=== PATIENT | female | born 1960 | race Caucasian/White ===

== ENCOUNTER 2016-12-04 13:57 | Emergency (ER) | payer BC, OTHER ==
[2016-12-04 15:55] LABS: BASO # 0.1 K/mm3 (0.0-0.2); BASO % 0.6 % (0.0-1.0); EOS # 0.2 K/mm3 (0.0-0.50); LARGE UNSTAINED CELL # 0.2 K/mm3 (0.0-0.4); LARGE UNSTAINED CELL % 2.1 % (0.0-4.0); LYMPH # 2.7 K/mm3 (1.5-4.5); LYMPH % 29.9 % (24.0-44.0); MEAN CORPUSCULAR HEMOGLOBIN 29.8 pg (27.0-33.0); MEAN CORPUSCULAR HGB CONC 33.1 g/dl (32.0-36.5); MEAN CORPUSCULAR VOLUME 90.1 fl (80.0-96.0); MONO # 0.4 K/mm3 (0.0-0.8); MONO % 4.7 % (0.0-5.0); NEUTROPHILS # 5.4 K/mm3 (1.8-7.7); NEUTROPHILS % 60.6 % (36.0-66.0); PLATELET COUNT, AUTOMATED 220 k/mm3 (150-450); RED CELL DISTRIBUTION WIDTH 13.6 % (11.5-14.5); WHITE BLOOD COUNT 8.9 K/mm3 (4.0-10.0)
--- NOTE | 2016-12-04 16:11 | REP ---
Right ankle series: Four views. History: Deformity and swelling. Findings: Ankle mortise is intact. No fracture is seen. There is plantar calcaneal spurring. Impression: No fracture noted. Mild spurring. Signed by Neptali Naik MD 12/04/2016 04:03 P
[2016-12-04 16:18] LABS: ERYTHROCYTE SEDIMENTATION RATE 18 mm/hr (0-30)
--- NOTE | 2016-12-04 17:50 | REPUSA ---
CLINICAL HISTORY: Edema. COMMENTS: Real time sonography with duplex doppler of the right lower extremity was performed with attention to the major deep venous structures. Evaluation reveals the right common femoral, superficial femoral and popliteal veins to be completely compressible without intraluminal thrombus. There is normal spontaneous phasic flow and augmentation . The greater saphenous/common femoral vein junction is patent. IMPRESSION: No evidence of DVT in right lower extremity. Thank you for your kind referral of this patient.
--- NOTE | 2016-12-04 18:24 | EDDOCDS ---
Nurse's Notes [facility] Name: Kristi Hansen Age: 56 yrs Sex: Female : 1960 Arrival Date: 12/04/2016 Time: 13:57 Bed 13 Private MD: NO PRIMARY PHYSICIAN, . Diagnosis: Rheumatoid bursitis, ankle and foot;Paresthesia of skin Presentation: 12/04 14:06 Presenting complaint: Patient states: right foot has been numb since Monday night. kr3 Reports today noticed numbness to right ankle. No known injury. Adult Sepsis Screening: The patient does not have new or worsening altered mentation. Patient's respiratory rate is less than 22. Systolic blood pressure is greater than 100. Patient has a qSOFA score of 0- Negative Sepsis Screen. Suicide/Homicide risk assessment- the patient denies having any suicidal and/or homicidal ideations and does not present with any other emotional, behavioral or mental health complaints. Status: Patient is not a service specialist or dependent. Transition of care: patient was not received from another setting of care. 14:06 Acuity: KAMILLE Level 4 kr3 14:06 Method Of Arrival: Walkin/Carried/Asstd kr3 Triage Assessment: 14:14 General: Appears in no apparent distress, comfortable, Behavior is appropriate for age, kr3 cooperative. Pain: Location: right foot Pain currently is 2 out of 10 on a pain scale. Quality of pain is described as aching. Pt Declines HIV testing. Respiratory: Respiratory effort is even, unlabored. Derm: Skin is normal. Musculoskeletal: Reports weight bears with no difficulty. Historical: - Allergies: no known allergies; - Home Meds: 1. levothyroxine 112 mcg Oral cap 1 cap once daily 2. Cimzia subcutaneous subcutaneous every other week 3. prednisone 5 mg Oral tab once daily 4. Arthritis Pain Reliever 650 mg oral TbER 2 tabs 5. cyclobenzaprine 10 mg Oral tab as needed 6. metformin 500 mg Oral TG24 2 tabs 2 times per day 7. Vitamin D Oral 50,000 unit bi weekly 8. fenofibrate 54 mg oral tab 1 tab once daily 9. omeprazole 20 mg Oral cpDR 1 cap once daily 10. citalopram 40 mg Oral tab 1 tab once daily 11. mirtazapine 15 mg Oral TbDL 1 tab once daily 12. acyclovir 800 mg Oral tab as needed 13. Ventolin Rotahaler/Rotacaps Inhl as needed 14. clobetasol 0.05 % Topical crea as needed 15. Systane 0.4-0.3 % ophthalmic drop three times a day 16. Restasis 0.05 % ophthalmic dpet 1 drop 2 times per day - PMHx: Psoriasis; Asthma; Hiatal Hernia; Depression; Diabetes - NIDDM: controlled; Rheumatoid Arthritis; Hypothyroidism; - PSHx: Cholecystectomy; Lumpectomy- Left; Hysterectomy; - The history from nurses notes was reviewed: and I agree with what is documented. - Social history: Smoking status: Patient states was never smoker of tobacco. No barriers to communication noted, The patient speaks fluent Kazakh, Speaks appropriately for age. - Family history: Not pertinent. - : The pt / caregiver states he / she is not on anticoagulants. Home medication list is obtained from the patient. - Hospitalizations: : No recent hospitalization is reported. - Exposure Risk Screening:: None identified. - Immunization history:: All immunizations up-to-date. - Social history:: the patient is a non-smoker, the patient does not drink alcohol. Screenin:21 Screening information is obtained from the patient. Fall risk: No risks identified. jc4 Assistance ADL's: requires no assistance with activities of daily living. Abuse/DV Screen: The patient / caregiver reports he/she is: not in a situation that causes fear, pain or injury. Nutritional screening: No deficits noted. Advance Directives: Currently, there is no health care proxy. There is no active DNR order. There is no living will. There is an active Power of [place], Mark Macias, father. home support is adequate. Assessment: 15:12 General: Dr. Chen in to examine patient. jc4 15:23 General: Appears in no apparent distress. Pain: Denies pain. Neurological: Level of jc4 Consciousness is awake, alert, Oriented to person, place, time. Respiratory: Airway is patent Respiratory effort is even, unlabored, Respiratory pattern is regular, symmetrical. Derm: Skin is pink, warm & dry. Musculoskeletal: pulses palpable in right posterior tibial and dorsalis pedis Reports numbness in lateral side of right foot. Injury Description: No known injury. 15:46 General: Pt returned from radiology. Resting comfortably in bed. Call torres placed ld5 within reach. Will continue to monitor. 16:41 General: Pt resting on stretcher. Working on crossword puzzle. No distress noted at jc4 this time. Color pink, skin warm and dry. Respirations easy and full. Saline lock in place. Call torres in reach. 17:48 General: Pt resting on stretcher. No distress noted at this time. Denies any pain. jc4 States that numbness persists in right lateral foot. Saline lock in place. Call torres in reach. Denies any complaint at this time. 18:22 General: Appears in no apparent distress, Behavior is cooperative, pleasant. Pain: ld5 Denies pain. Neurological: Level of Consciousness is awake, alert. Respiratory: Airway is patent Respiratory effort is even, unlabored. Vital Signs: 14:00 BP 148 / 72; Pulse 83; Resp 18 S; Temp 96.8(O); Pulse Ox 98% on R/A; Weight 90.72 kg gr2 (R); Height 4 ft. 11 in. (149.86 cm) (R); Pain 0/10; 17:48 BP 139 / 72; Pulse 80; Resp 20; Temp 97.6(O); Pulse Ox 96% on R/A; Pain 0/10; jc4 14:00 Body Mass Index 40.39 (90.72 kg, 149.86 cm) [facility] Vitals: 14:00 Log In Time: December 04, 2016 at 14:00. gr2 ED Course: 13:59 Patient visited by Paulino Sapp. gr2 13:59 Patient moved to Waiting gr2 14:00 NO PRIMARY PHYSICIAN, . is Private Physician. gr2 14:03 Patient visited by Paulino Sapp. gr2 14:03 Patient moved to Pre RCE gr2 14:07 Triage Initiated kr3 14:54 Patient moved to 13 ml6 15:06 Emmett Chen MD is Attending Physician. pc 15:20 Patient visited by Emmett Chen MD. pc 15:20 The patient / caregiver is instructed regarding the plan of care and ED course. jc4 15:46 Patient visited by Geovanna Urbano RN. ld5 15:46 ESR Sent. ld5 15:46 C Reactive Protein Sent. ld5 15:46 CBC with Diff Sent. ld5 15:46 Inserted saline lock: 20 gauge in right antecubital area and blood collected. The ld5 patient tolerated the procedure well. Labs drawn. (by ED staff). Sent per order to lab. 15:55 [facility] [place] Agreement was scanned into [employer] and attached to record. ks16 16:21 Ankle, Complete Returned. EDMS 16:35 Patient visited by Emmett Chen MD. pc 16:42 Patient visited by Hedy Sheffield, LARRY. jc4 16:49 Patient moved to Ultrasound br3 17:05 Patient moved to 13 br3 17:48 Patient visited by Hedy Sheffield RN. jc4 18:04 DVT US Lower Returned. EDMS 18:22 Discontinued lock intact, bleeding controlled, pressure dressing applied, No ld5 redness/swelling at site. No procedures done that require assistance. Air stirrup applied to right ankle Patient with positive distal sensation and brisk distal capillary refill after application. 18:24 Patient visited by Geovanna Urbano RN. ld5 Order Results: Lab Order: CBC with Diff; SPEC'M 12/04/16 15:44 Test: WHITE BLOOD COUNT; Value: 8.9; Range: 4.0-10.0; Units: K/mm3; Status: F Test: RED BLOOD COUNT; Value: 4.59; Range: 4.00-5.40; Units: M/mm3; Status: F Test: HEMOGLOBIN; Value: 13.7; Range: 12.0-16.0; Units: g/dl; Status: F Test: HEMATOCRIT; Value: 41.3; Range: 36.0-47.0; Units: %; Status: F Test: MEAN CORPUSCULAR VOLUME; Value: 90.1; Range: 80.0-96.0; Units: fl; Status: F Test: MEAN CORPUSCULAR HEMOGLOBIN; Value: 29.8; Range: 27.0-33.0; Units: pg; Status: F Test: MEAN CORPUSCULAR HGB CONC; Value: 33.1; Range: 32.0-36.5; Units: g/dl; Status: F Test: RED CELL DISTRIBUTION WIDTH; Value: 13.6; Range: 11.5-14.5; Units: %; Status: F Test: PLATELET COUNT, AUTOMATED; Value: 220; Range: 150-450; Units: k/mm3; Status: F Test: NEUTROPHILS %; Value: 60.6; Range: 36.0-66.0; Units: %; Status: F Test: LYMPH %; Value: 29.9; Range: 24.0-44.0; Units: %; Status: F Test: MONO %; Value: 4.7; Range: 0.0-5.0; Units: %; Status: F Test: EOS %; Value: 2.0; Range: 0.0-3.0; Units: %; Status: F Test: BASO %; Value: 0.6; Range: 0.0-1.0; Units: %; Status: F Test: LARGE UNSTAINED CELL %; Value: 2.1; Range: 0.0-4.0; Units: %; Status: F Test: NEUTROPHILS #; Value: 5.4; Range: 1.8-7.7; Units: K/mm3; Status: F Test: LYMPH #; Value: 2.7; Range: 1.5-4.5; Units: K/mm3; Status: F Test: MONO #; Value: 0.4; Range: 0.0-0.8; Units: K/mm3; Status: F Test: EOS #; Value: 0.2; Range: 0.0-0.50; Units: K/mm3; Status: F Test: BASO #; Value: 0.1; Range: 0.0-0.2; Units: K/mm3; Status: F Test: LARGE UNSTAINED CELL #; Value: 0.2; Range: 0.0-0.4; Units: K/mm3; Status: F Lab Order: C Reactive Protein; SPEC'M 12/04/16 15:44 Test: C REACTIVE PROTEIN QUANTITATIV; Value: 1.32; Range: 0.00-0.30; Abnormal: Above high normal; Units: MG/DL; Status: F Lab Order: ESR; SPEC'M 12/04/16 15:44 Test: ERYTHROCYTE SEDIMENTATION RATE; Value: 18; Range: 0-30; Units: mm/hr; Status: F Radiology Order: Ankle, Complete Test: Ankle, Complete REASON FOR EXAMINATION: Deformity/Swelling; Right ankle series: Four views.; ; History: Deformity and swelling.; ; Findings: Ankle mortise is intact. No fracture is seen. There is plantar; calcaneal spurring.; ; Impression:; ; No fracture noted. Mild spurring.; ; ; Signed by; Neptali Naik MD 12/04/2016 04:03 P; Radiology Order: DVT US Lower Test: DVT US Lower REASON FOR EXAMINATION: Deformity/Swelling; ; CLINICAL HISTORY: Edema.; COMMENTS:; Real time sonography with duplex doppler of the right lower extremity was performed with attention to; the major deep venous structures.; Evaluation reveals the right common femoral, superficial femoral and popliteal veins to be completely; compressible without intraluminal thrombus. There is normal spontaneous phasic flow and augmentation; . The greater saphenous/common femoral vein junction is patent.; IMPRESSION:; No evidence of DVT in right lower extremity.; Thank you for your kind referral of this patient.; ; Outcome: 18:07 Discharge ordered by Provider. pc 18:22 Discharge Assessment: Patient awake, alert and oriented x 3. No cognitive and/or ld5 functional deficits noted. Patient verbalized understanding of disposition instructions. patient administered narcotics - no. The following High Risk Discharge criteria are identified: None. Discharged to home ambulatory. Condition: stable. Discharge instructions given to patient, Instructed on discharge instructions, follow up and referral plans. medication usage, Demonstrated understanding of instructions, medications, Pt was receptive of discharge instructions/ teaching. No special radiology studies were completed. Property :Personal belongings accompany Pt. 18:24 Patient left the ED. ld5 Signatures: Dispatcher [employer] EDMS Emmett Chen MD MD pc Addie Mathews,LARRY RN kr3 Pedro Call RN RN ml6 Johanny Sapp br3 Geovanna Urbano RN RN ld5 Hedy Sheffield RN RN jc4 Paulino Sapp gr2 Miriam Fields, Reg Reg ks16 MTDD
--- NOTE | 2016-12-04 18:24 | EDDOCDS ---
Physician Documentation [facility] Name: Kristi Hansen Age: 56 yrs Sex: Female : 1960 Arrival Date: 12/04/2016 Time: 13:57 Bed 13 Private MD: NO PRIMARY PHYSICIAN, . Disposition: 12/04 17:49 Critical Care: Critical care not applicable. pc Disposition: 12/04/16 18:07 Discharged to Home/Self Care. Impression: Rheumatoid bursitis, ankle and foot, Paresthesia of skin. - Condition is Stable. - Discharge Instructions: Rheumatoid Arthritis. - Medication Reconciliation, Local Pharmacy Hours form. - Follow up: Private Physician; When: in [place]: call to be seen earlier than scheduled appointment ; Reason: Recheck today's complaints, Continuance of care. - Problem is new. - Symptoms have improved. - Notes: Increase your prednisone to 10mg daily for 3 days and then taper down to 7.5mg and then 5mg every 3 days HPI: 15:27 This 56 yrs old Female presents to ER via Walkin/Carried/Asstd with pc complaints of ANKLE/FOOT NUMBNESS. 15:27 The history is obtained from the patient. She drove 3-4 hours on Monday and noticed pc that her right foot, over the lateral aspect near the base of the 5th M/T was numb to touch. It was not painful or swollen, and the skin was not red. She kept it elevated over night and then noticed the next morning that the outer aspect of the right ankle was also numb to touch. She again did not have any pain or swelling or skin changes. She is keisha to walk without difficulty. She did not have any fevers or chills. She has RA, on Cimzia that was held last week because of a head cold. She does not feel this is a RA flare, as she is usually in sever pain when that occurs. She denies any calf swelling or pain, denies low back pain. 15:37 The patient has not experienced similar symptoms in the past. The patient has been pc recently seen by their primary care provider, for a routine, regularly scheduled appointment. Historical: - Allergies: no known allergies; - Home Meds: 1. levothyroxine 112 mcg Oral cap 1 cap once daily 2. Cimzia subcutaneous subcutaneous every other week 3. prednisone 5 mg Oral tab once daily 4. Arthritis Pain Reliever 650 mg oral TbER 2 tabs 5. cyclobenzaprine 10 mg Oral tab as needed 6. metformin 500 mg Oral TG24 2 tabs 2 times per day 7. Vitamin D Oral 50,000 unit bi weekly 8. fenofibrate 54 mg oral tab 1 tab once daily 9. omeprazole 20 mg Oral cpDR 1 cap once daily 10. citalopram 40 mg Oral tab 1 tab once daily 11. mirtazapine 15 mg Oral TbDL 1 tab once daily 12. acyclovir 800 mg Oral tab as needed 13. Ventolin Rotahaler/Rotacaps Inhl as needed 14. clobetasol 0.05 % Topical crea as needed 15. Systane 0.4-0.3 % ophthalmic drop three times a day 16. Restasis 0.05 % ophthalmic dpet 1 drop 2 times per day - PMHx: Psoriasis; Asthma; Hiatal Hernia; Depression; Diabetes - NIDDM: controlled; Rheumatoid Arthritis; Hypothyroidism; - PSHx: Cholecystectomy; Lumpectomy- Left; Hysterectomy; - The history from nurses notes was reviewed: and I agree with what is documented. - Social history: Smoking status: Patient states was never smoker of tobacco. No barriers to communication noted, The patient speaks fluent Hebrew, Speaks appropriately for age. - Family history: Not pertinent. - : The pt / caregiver states he / she is not on anticoagulants. Home medication list is obtained from the patient. - Hospitalizations: : No recent hospitalization is reported. - Exposure Risk Screening:: None identified. - Immunization history:: All immunizations up-to-date. - Social history:: the patient is a non-smoker, the patient does not drink alcohol. ROS: 15:37 CVS/Resp: runny nose and dry cough for 5 days. pc 15:37 All systems are negative except as listed. Exam: 15:37 General Appearance: no acute distress, alert. pc 15:37 EENT: normal eye inspection, ears, nose and throat normal, pharynx normal, mucous membranes moist 15:37 Neck: The exam reveals no acute abnormalities. ROM is normal and painless. No nuchal rigidity is noted.. 15:37 Respiratory: no respiratory distress, normal breath sounds. 15:37 CVS: regular pulse rate, regular rhythm, normal S1 and S2, no murmurs, strong peripheral pulses, normal capillary refill. 15:37 Abdomen: soft, non-tender, no organomegaly, normal bowel sounds. 15:37 Back: normal inspection. 15:37 Skin: skin color is normal, warm, dry. 15:37 Extremities: grossly normal except: noted in the right ankle and lateral aspect of right foot: slight swelling noted, warm to touch without skin color changes. ROM of ankle normal and painless. No bony point tenderness. Decreased light touch but normal pin prick sensation. 15:37 Extremities: the calves have equal circumference, supple. pc Vital Signs: 14:00 BP 148 / 72; Pulse 83; Resp 18 S; Temp 96.8(O); Pulse Ox 98% on R/A; Weight 90.72 kg / gr2 200 lbs (R); Height 4 ft. 11 in. (149.86 cm) (R); Pain 0/10; 17:48 BP 139 / 72; Pulse 80; Resp 20; Temp 97.6(O); Pulse Ox 96% on R/A; Pain 0/10; jc4 14:00 Body Mass Index 40.39 (90.72 kg, 149.86 cm) gr2 MDM: 15:20 IV Saline Lock ordered. pc 15:21 CBC with Diff Ordered. EDMS 15:21 C Reactive Protein Ordered. EDMS 15:21 ESR Ordered. EDMS 15:22 Ankle, Complete Ordered. EDMS 15:40 Differential Diagnosis: arthropathy right ankle with history of RA, with localized pc sensory changesd likely due to swelling r/o DVT/radiculopathy. Plan: labs, imaging. 15:51 Financial registration complete. ks16 15:55 [facility] Payment Agreement was scanned into [employer] and attached to record. ks16 16:35 C Reactive Protein Reviewed. pc 16:35 CBC with Diff Reviewed. pc 16:35 ESR Reviewed. pc 16:35 Ankle, Complete Reviewed. pc 16:37 DVT US Lower Ordered. EDMS 17:40 Data reviewed: old medical records, vital signs, nurses notes, lab test results, all pc radiology studies and available results. Test interpretation: LAB - all labs as ordered have been reviewed, interpreted and considered in the overall management of the clinical presentation; Ultrasound - interpreted by Radiologist, Extremity Lower Right Normal. The patient has been re-examined and re-evaluated. There is no appreciated change of the patient's symptoms at this time. ED course: Her symptoms are consistent with localized paraesthesia due to swelling. The ankle is warm and slightly swollen and her CRP is slightly elevated. She will be treated symptomatically and encouraged to contact her Pre Press Manager tomorrow re; Sabrina. 17:49 Disposition: The historical points, examination findings, and any diagnostic results pc supporting the provided diagnosis, were discussed with the patient or legal guardian. The need for outpatient follow up with the provider listed on their discharge instructions was discussed. They were encouraged to return to [facility], or the nearest ED, if symptoms worsen/persist, or for any other questions/concerns. 18:05 Apply Air Cast to Patient. ordered. pc Signatures: Dispatcher [employer] EDMS Emmett Chen MD MD pc Robie, KathleenRN RN kr3 Geovanna UrbanoRN RN ld5 Hedy Sheffield RN RN jc4 Miriam Fields, Reg Reg ks16 The chart was reviewed and I authenticate all verbal orders and agree with the evaluation and treatment provided.Corrections: (The following items were deleted from the chart) 15:32 15:27 She drove 3-4 hours on Monday and noticed that her right foot, over the lateral pc aspect near the base of the 5th M/T was numb to touch. It was not painful or swollen, and the skin was not red. She kept it elevated over night and then noticed the next morning that the outer aspect of the right ankle was also numb to touch. She again did not have any pain or swelling or skin changes. She is keisha to walk without difficulty. She did not have any fevers or chills pc 15:38 15:27 [address] drove 3-4 hours on Monday and noticed that her right foot, over the lateral pc aspect near the base of the 5th M/T was numb to touch. It was not painful or swollen, and the skin was not red. She kept it elevated over night and then noticed the next morning that the outer aspect of the right ankle was also numb to touch. She again did not have any pain or swelling or skin changes. She is keisha to walk without difficulty. She did not have any fevers or chills. She has RA, on Cimzia that was held last week because of a head cold. pc Attachments: 15:55 [facility] Payment Agreement [email or web address] MTDD
--- NOTE | 2016-12-06 19:25 | EDDOCDS ---
Physician Documentation [facility] Name: Kristi Hansen Age: 56 yrs Sex: Female : 1960 Arrival Date: 12/04/2016 Time: 13:57 Bed 13 Private MD: NO PRIMARY PHYSICIAN, . Disposition: 12/04 17:49 Critical Care: Critical care not applicable. pc Disposition: 12/04/16 18:07 Discharged to Home/Self Care. Impression: Rheumatoid bursitis, ankle and foot, Paresthesia of skin. - Condition is Stable. - Discharge Instructions: Rheumatoid Arthritis. - Medication Reconciliation, Local Pharmacy Hours form. - Follow up: Private Physician; When: in [place]: call to be seen earlier than scheduled appointment ; Reason: Recheck today's complaints, Continuance of care. - Problem is new. - Symptoms have improved. - Notes: Increase your prednisone to 10mg daily for 3 days and then taper down to 7.5mg and then 5mg every 3 days HPI: 15:27 This 56 yrs old Female presents to ER via Walkin/Carried/Asstd with pc complaints of ANKLE/FOOT NUMBNESS. 15:27 The history is obtained from the patient. She drove 3-4 hours on Monday and noticed pc that her right foot, over the lateral aspect near the base of the 5th M/T was numb to touch. It was not painful or swollen, and the skin was not red. She kept it elevated over night and then noticed the next morning that the outer aspect of the right ankle was also numb to touch. She again did not have any pain or swelling or skin changes. She is keisha to walk without difficulty. She did not have any fevers or chills. She has RA, on Cimzia that was held last week because of a head cold. She does not feel this is a RA flare, as she is usually in sever pain when that occurs. She denies any calf swelling or pain, denies low back pain. 15:37 The patient has not experienced similar symptoms in the past. The patient has been pc recently seen by their primary care provider, for a routine, regularly scheduled appointment. Historical: - Allergies: no known allergies; - Home Meds: 1. levothyroxine 112 mcg Oral cap 1 cap once daily 2. Cimzia subcutaneous subcutaneous every other week 3. prednisone 5 mg Oral tab once daily 4. Arthritis Pain Reliever 650 mg oral TbER 2 tabs 5. cyclobenzaprine 10 mg Oral tab as needed 6. metformin 500 mg Oral TG24 2 tabs 2 times per day 7. Vitamin D Oral 50,000 unit bi weekly 8. fenofibrate 54 mg oral tab 1 tab once daily 9. omeprazole 20 mg Oral cpDR 1 cap once daily 10. citalopram 40 mg Oral tab 1 tab once daily 11. mirtazapine 15 mg Oral TbDL 1 tab once daily 12. acyclovir 800 mg Oral tab as needed 13. Ventolin Rotahaler/Rotacaps Inhl as needed 14. clobetasol 0.05 % Topical crea as needed 15. Systane 0.4-0.3 % ophthalmic drop three times a day 16. Restasis 0.05 % ophthalmic dpet 1 drop 2 times per day - PMHx: Psoriasis; Asthma; Hiatal Hernia; Depression; Diabetes - NIDDM: controlled; Rheumatoid Arthritis; Hypothyroidism; - PSHx: Cholecystectomy; Lumpectomy- Left; Hysterectomy; - The history from nurses notes was reviewed: and I agree with what is documented. - Social history: Smoking status: Patient states was never smoker of tobacco. No barriers to communication noted, The patient speaks fluent Azeri, Speaks appropriately for age. - Family history: Not pertinent. - : The pt / caregiver states he / she is not on anticoagulants. Home medication list is obtained from the patient. - Hospitalizations: : No recent hospitalization is reported. - Exposure Risk Screening:: None identified. - Immunization history:: All immunizations up-to-date. - Social history:: the patient is a non-smoker, the patient does not drink alcohol. ROS: 15:37 CVS/Resp: runny nose and dry cough for 5 days. pc 15:37 All systems are negative except as listed. Exam: 15:37 General Appearance: no acute distress, alert. pc 15:37 EENT: normal eye inspection, ears, nose and throat normal, pharynx normal, mucous membranes moist 15:37 Neck: The exam reveals no acute abnormalities. ROM is normal and painless. No nuchal rigidity is noted.. 15:37 Respiratory: no respiratory distress, normal breath sounds. 15:37 CVS: regular pulse rate, regular rhythm, normal S1 and S2, no murmurs, strong peripheral pulses, normal capillary refill. 15:37 Abdomen: soft, non-tender, no organomegaly, normal bowel sounds. 15:37 Back: normal inspection. 15:37 Skin: skin color is normal, warm, dry. 15:37 Extremities: grossly normal except: noted in the right ankle and lateral aspect of right foot: slight swelling noted, warm to touch without skin color changes. ROM of ankle normal and painless. No bony point tenderness. Decreased light touch but normal pin prick sensation. 15:37 Extremities: the calves have equal circumference, supple. pc Vital Signs: 14:00 BP 148 / 72; Pulse 83; Resp 18 S; Temp 96.8(O); Pulse Ox 98% on R/A; Weight 90.72 kg / gr2 200 lbs (R); Height 4 ft. 11 in. (149.86 cm) (R); Pain 0/10; 17:48 BP 139 / 72; Pulse 80; Resp 20; Temp 97.6(O); Pulse Ox 96% on R/A; Pain 0/10; jc4 14:00 Body Mass Index 40.39 (90.72 kg, 149.86 cm) gr2 MDM: 15:20 IV Saline Lock ordered. pc 15:21 CBC with Diff Ordered. EDMS 15:21 C Reactive Protein Ordered. EDMS 15:21 ESR Ordered. EDMS 15:22 Ankle, Complete Ordered. EDMS 15:40 Differential Diagnosis: arthropathy right ankle with history of RA, with localized pc sensory changesd likely due to swelling r/o DVT/radiculopathy. Plan: labs, imaging. 15:51 Financial registration complete. ks16 15:55 [facility] Payment Agreement was scanned into [employer] and attached to record. ks16 16:35 C Reactive Protein Reviewed. pc 16:35 CBC with Diff Reviewed. pc 16:35 ESR Reviewed. pc 16:35 Ankle, Complete Reviewed. pc 16:37 DVT US Lower Ordered. EDMS 17:40 Data reviewed: old medical records, vital signs, nurses notes, lab test results, all pc radiology studies and available results. Test interpretation: LAB - all labs as ordered have been reviewed, interpreted and considered in the overall management of the clinical presentation; Ultrasound - interpreted by Radiologist, Extremity Lower Right Normal. The patient has been re-examined and re-evaluated. There is no appreciated change of the patient's symptoms at this time. ED course: Her symptoms are consistent with localized paraesthesia due to swelling. The ankle is warm and slightly swollen and her CRP is slightly elevated. She will be treated symptomatically and encouraged to contact her Nuclear Physics Professor tomorrow reDerik Bennett. 17:49 Disposition: The historical points, examination findings, and any diagnostic results pc supporting the provided diagnosis, were discussed with the patient or legal guardian. The need for outpatient follow up with the provider listed on their discharge instructions was discussed. They were encouraged to return to [facility], or the nearest ED, if symptoms worsen/persist, or for any other questions/concerns. 18:05 Apply Air Cast to Patient. ordered. pc 12/05 10:48 Radiology Report was scanned into [employer] and attached to record. gb Signatures: Dispatcher [employer] EDMS Emmett Chen MD MD pc Carito Cornell, Reg Reg gb Addie Mathews,RN RN kr3 Geovanna Urbano RN RN ld5 Hedy Sheffield RN RN jc4 Miriam Fields, Reg Reg ks16 The chart was reviewed and I authenticate all verbal orders and agree with the evaluation and treatment provided.Corrections: (The following items were deleted from the chart) 12/04 15:32 15:27 She drove 3-4 hours on Monday and noticed that her right foot, over the lateral pc aspect near the base of the 5th M/T was numb to touch. It was not painful or swollen, and the skin was not red. She kept it elevated over night and then noticed the next morning that the outer aspect of the right ankle was also numb to touch. She again did not have any pain or swelling or skin changes. She is keisha to walk without difficulty. She did not have any fevers or chills pc 15:38 15:27 She drove 3-4 hours on Monday and noticed that her right foot, over the lateral pc aspect near the base of the 5th M/T was numb to touch. It was not painful or swollen, and the skin was not red. She kept it elevated over night and then noticed the next morning that the outer aspect of the right ankle was also numb to touch. She again did not have any pain or swelling or skin changes. She is keisha to walk without difficulty. She did not have any fevers or chills. She has RA, on Cimzia that was held last week because of a head cold. Attachments: 15:55 [facility] Payment Agreement ks16 Chart Complete MTDD
--- NOTE | 2016-12-06 19:25 | EDDOCDS ---
Nurse's Notes [facility] Name: Kristi Hansen Age: 56 yrs Sex: Female : 1960 Arrival Date: 12/04/2016 Time: 13:57 Bed 13 Private MD: NO PRIMARY PHYSICIAN, . Diagnosis: Rheumatoid bursitis, ankle and foot;Paresthesia of skin Presentation: 12/04 14:06 Presenting complaint: Patient states: right foot has been numb since Monday night. kr3 Reports today noticed numbness to right ankle. No known injury. Adult Sepsis Screening: The patient does not have new or worsening altered mentation. Patient's respiratory rate is less than 22. Systolic blood pressure is greater than 100. Patient has a qSOFA score of 0- Negative Sepsis Screen. Suicide/Homicide risk assessment- the patient denies having any suicidal and/or homicidal ideations and does not present with any other emotional, behavioral or mental health complaints. Status: Patient is not a manager field services or dependent. Transition of care: patient was not received from another setting of care. 14:06 Acuity: KAMILLE Level 4 kr3 14:06 Method Of Arrival: Walkin/Carried/Asstd kr3 Triage Assessment: 14:14 General: Appears in no apparent distress, comfortable, Behavior is appropriate for age, kr3 cooperative. Pain: Location: right foot Pain currently is 2 out of 10 on a pain scale. Quality of pain is described as aching. Pt Declines HIV testing. Respiratory: Respiratory effort is even, unlabored. Derm: Skin is normal. Musculoskeletal: Reports weight bears with no difficulty. Historical: - Allergies: no known allergies; - Home Meds: 1. levothyroxine 112 mcg Oral cap 1 cap once daily 2. Cimzia subcutaneous subcutaneous every other week 3. prednisone 5 mg Oral tab once daily 4. Arthritis Pain Reliever 650 mg oral TbER 2 tabs 5. cyclobenzaprine 10 mg Oral tab as needed 6. metformin 500 mg Oral TG24 2 tabs 2 times per day 7. Vitamin D Oral 50,000 unit bi weekly 8. fenofibrate 54 mg oral tab 1 tab once daily 9. omeprazole 20 mg Oral cpDR 1 cap once daily 10. citalopram 40 mg Oral tab 1 tab once daily 11. mirtazapine 15 mg Oral TbDL 1 tab once daily 12. acyclovir 800 mg Oral tab as needed 13. Ventolin Rotahaler/Rotacaps Inhl as needed 14. clobetasol 0.05 % Topical crea as needed 15. Systane 0.4-0.3 % ophthalmic drop three times a day 16. Restasis 0.05 % ophthalmic dpet 1 drop 2 times per day - PMHx: Psoriasis; Asthma; Hiatal Hernia; Depression; Diabetes - NIDDM: controlled; Rheumatoid Arthritis; Hypothyroidism; - PSHx: Cholecystectomy; Lumpectomy- Left; Hysterectomy; - The history from nurses notes was reviewed: and I agree with what is documented. - Social history: Smoking status: Patient states was never smoker of tobacco. No barriers to communication noted, The patient speaks fluent Khmer, Speaks appropriately for age. - Family history: Not pertinent. - : The pt / caregiver states he / she is not on anticoagulants. Home medication list is obtained from the patient. - Hospitalizations: : No recent hospitalization is reported. - Exposure Risk Screening:: None identified. - Immunization history:: All immunizations up-to-date. - Social history:: the patient is a non-smoker, the patient does not drink alcohol. Screenin:21 Screening information is obtained from the patient. Fall risk: No risks identified. jc4 Assistance ADL's: requires no assistance with activities of daily living. Abuse/DV Screen: The patient / caregiver reports he/she is: not in a situation that causes fear, pain or injury. Nutritional screening: No deficits noted. Advance Directives: Currently, there is no health care proxy. There is no active DNR order. There is no living will. There is an active Power of City Treasurer, Mark Macias, father. home support is adequate. Assessment: 15:12 General: Dr. Chen in to examine patient. jc4 15:23 General: Appears in no apparent distress. Pain: Denies pain. Neurological: Level of jc4 Consciousness is awake, alert, Oriented to person, place, time. Respiratory: Airway is patent Respiratory effort is even, unlabored, Respiratory pattern is regular, symmetrical. Derm: Skin is pink, warm & dry. Musculoskeletal: pulses palpable in right posterior tibial and dorsalis pedis Reports numbness in lateral side of right foot. Injury Description: No known injury. 15:46 General: Pt returned from radiology. Resting comfortably in bed. Call torres placed ld5 within reach. Will continue to monitor. 16:41 General: Pt resting on stretcher. Working on crossword puzzle. No distress noted at jc4 this time. Color pink, skin warm and dry. Respirations easy and full. Saline lock in place. Call torres in reach. 17:48 General: Pt resting on stretcher. No distress noted at this time. Denies any pain. jc4 States that numbness persists in right lateral foot. Saline lock in place. Call torres in reach. Denies any complaint at this time. 18:22 General: Appears in no apparent distress, Behavior is cooperative, pleasant. Pain: ld5 Denies pain. Neurological: Level of Consciousness is awake, alert. Respiratory: Airway is patent Respiratory effort is even, unlabored. Vital Signs: 14:00 BP 148 / 72; Pulse 83; Resp 18 S; Temp 96.8(O); Pulse Ox 98% on R/A; Weight 90.72 kg gr2 (R); Height 4 ft. 11 in. (149.86 cm) (R); Pain 0/10; 17:48 BP 139 / 72; Pulse 80; Resp 20; Temp 97.6(O); Pulse Ox 96% on R/A; Pain 0/10; jc4 14:00 Body Mass Index 40.39 (90.72 kg, 149.86 cm) [facility] Vitals: 14:00 Log In Time: December 04, 2016 at 14:00. gr2 ED Course: 13:59 Patient visited by Paulino Sapp. gr2 13:59 Patient moved to Waiting gr2 14:00 NO PRIMARY PHYSICIAN, . is Private Physician. gr2 14:03 Patient visited by Paulino Sapp. gr2 14:03 Patient moved to Pre RCE gr2 14:07 Triage Initiated kr3 14:54 Patient moved to 13 ml6 15:06 Emmett Chen MD is Attending Physician. pc 15:20 Patient visited by Emmett Chen MD. pc 15:20 The patient / caregiver is instructed regarding the plan of care and ED course. jc4 15:46 Patient visited by Geovanna Urbano RN. ld5 15:46 ESR Sent. ld5 15:46 C Reactive Protein Sent. ld5 15:46 CBC with Diff Sent. ld5 15:46 Inserted saline lock: 20 gauge in right antecubital area and blood collected. The ld5 patient tolerated the procedure well. Labs drawn. (by ED staff). Sent per order to lab. 15:55 [facility] Payment Agreement was scanned into [employer] and attached to record. ks16 16:21 Ankle, Complete Returned. EDMS 16:35 Patient visited by Emmett Chen MD. pc 16:42 Patient visited by Hedy Sheffield, LARRY. jc4 16:49 Patient moved to Ultrasound br3 17:05 Patient moved to 13 br3 17:48 Patient visited by Hedy Sheffield, LARRY. jc4 18:04 DVT US Lower Returned. EDMS 18:22 Discontinued lock intact, bleeding controlled, pressure dressing applied, No ld5 redness/swelling at site. No procedures done that require assistance. Air stirrup applied to right ankle Patient with positive distal sensation and brisk distal capillary refill after application. 18:24 Patient visited by Geovanna Urbano RN. ld5 01 10:48 Radiology Report was scanned into [employer] and attached to record. gb Order Results: Lab Order: CBC with Diff; SPEC'M 12/04/16 15:44 Test: WHITE BLOOD COUNT; Value: 8.9; Range: 4.0-10.0; Units: K/mm3; Status: F Test: RED BLOOD COUNT; Value: 4.59; Range: 4.00-5.40; Units: M/mm3; Status: F Test: HEMOGLOBIN; Value: 13.7; Range: 12.0-16.0; Units: g/dl; Status: F Test: HEMATOCRIT; Value: 41.3; Range: 36.0-47.0; Units: %; Status: F Test: MEAN CORPUSCULAR VOLUME; Value: 90.1; Range: 80.0-96.0; Units: fl; Status: F Test: MEAN CORPUSCULAR HEMOGLOBIN; Value: 29.8; Range: 27.0-33.0; Units: pg; Status: F Test: MEAN CORPUSCULAR HGB CONC; Value: 33.1; Range: 32.0-36.5; Units: g/dl; Status: F Test: RED CELL DISTRIBUTION WIDTH; Value: 13.6; Range: 11.5-14.5; Units: %; Status: F Test: PLATELET COUNT, AUTOMATED; Value: 220; Range: 150-450; Units: k/mm3; Status: F Test: NEUTROPHILS %; Value: 60.6; Range: 36.0-66.0; Units: %; Status: F Test: LYMPH %; Value: 29.9; Range: 24.0-44.0; Units: %; Status: F Test: MONO %; Value: 4.7; Range: 0.0-5.0; Units: %; Status: F Test: EOS %; Value: 2.0; Range: 0.0-3.0; Units: %; Status: F Test: BASO %; Value: 0.6; Range: 0.0-1.0; Units: %; Status: F Test: LARGE UNSTAINED CELL %; Value: 2.1; Range: 0.0-4.0; Units: %; Status: F Test: NEUTROPHILS #; Value: 5.4; Range: 1.8-7.7; Units: K/mm3; Status: F Test: LYMPH #; Value: 2.7; Range: 1.5-4.5; Units: K/mm3; Status: F Test: MONO #; Value: 0.4; Range: 0.0-0.8; Units: K/mm3; Status: F Test: EOS #; Value: 0.2; Range: 0.0-0.50; Units: K/mm3; Status: F Test: BASO #; Value: 0.1; Range: 0.0-0.2; Units: K/mm3; Status: F Test: LARGE UNSTAINED CELL #; Value: 0.2; Range: 0.0-0.4; Units: K/mm3; Status: F Lab Order: C Reactive Protein; SPEC'M 12/04/16 15:44 Test: C REACTIVE PROTEIN QUANTITATIV; Value: 1.32; Range: 0.00-0.30; Abnormal: Above high normal; Units: MG/DL; Status: F Lab Order: ESR; SPEC'M 12/04/16 15:44 Test: ERYTHROCYTE SEDIMENTATION RATE; Value: 18; Range: 0-30; Units: mm/hr; Status: F Radiology Order: Ankle, Complete Test: Ankle, Complete REASON FOR EXAMINATION: Deformity/Swelling; Right ankle series: Four views.; ; History: Deformity and swelling.; ; Findings: Ankle mortise is intact. No fracture is seen. There is plantar; calcaneal spurring.; ; Impression:; ; No fracture noted. Mild spurring.; ; ; Signed by; Neptali Naik MD 12/04/2016 04:03 P; Radiology Order: DVT US Lower Test: DVT US Lower REASON FOR EXAMINATION: Deformity/Swelling; ; CLINICAL HISTORY: Edema.; COMMENTS:; Real time sonography with duplex doppler of the right lower extremity was performed with attention to; the major deep venous structures.; Evaluation reveals the right common femoral, superficial femoral and popliteal veins to be completely; compressible without intraluminal thrombus. There is normal spontaneous phasic flow and augmentation; . The greater saphenous/common femoral vein junction is patent.; IMPRESSION:; No evidence of DVT in right lower extremity.; Thank you for your kind referral of this patient.; ; Outcome: 12/04 18:07 Discharge ordered by Provider. pc 18:22 Discharge Assessment: Patient awake, alert and oriented x 3. No cognitive and/or ld5 functional deficits noted. Patient verbalized understanding of disposition instructions. patient administered narcotics - no. The following High Risk Discharge criteria are identified: None. Discharged to home ambulatory. Condition: stable. Discharge instructions given to patient, Instructed on discharge instructions, follow up and referral plans. medication usage, Demonstrated understanding of instructions, medications, Pt was receptive of discharge instructions/ teaching. No special radiology studies were completed. Property :Personal belongings accompany Pt. 18:24 Patient left the ED. ld5 Signatures: Dispatcher [employer] EDMS Emmett Chen MD MD pc Carito Cornell, Reg Reg gb Addie Mathews,RN RN kr3 Pedro Call RN RN ml6 Johanny Sapp br3 Geovanna Urbano RN RN ld5 Hedy Sheffield RN RN jc4 Paulino Sapp gr2 Miriam Fields, Reg Reg ks16 Chart Complete MTDD
--- NOTE | 2016-12-06 19:25 | EDDOCDS ---
Physician Documentation [facility] Name: Kristi Hansen Age: 56 yrs Sex: Female : 1960 Arrival Date: 12/04/2016 Time: 13:57 Bed 13 Private MD: NO PRIMARY PHYSICIAN, . Disposition: 12/04 17:49 Critical Care: Critical care not applicable. pc Disposition: 12/04/16 18:07 Discharged to Home/Self Care. Impression: Rheumatoid bursitis, ankle and foot, Paresthesia of skin. - Condition is Stable. - Discharge Instructions: Rheumatoid Arthritis. - Medication Reconciliation, Local Pharmacy Hours form. - Follow up: Private Physician; When: in [place]: call to be seen earlier than scheduled appointment ; Reason: Recheck today's complaints, Continuance of care. - Problem is new. - Symptoms have improved. - Notes: Increase your prednisone to 10mg daily for 3 days and then taper down to 7.5mg and then 5mg every 3 days HPI: 15:27 This 56 yrs old Female presents to ER via Walkin[facility]Carried[facility]Asstd with pc complaints of ANKLE/FOOT NUMBNESS. 15:27 The history is obtained from the patient. She drove 3-4 hours on Monday and noticed pc that her right foot, over the lateral aspect near the base of the 5th M/T was numb to touch. It was not painful or swollen, and the skin was not red. She kept it elevated over night and then noticed the next morning that the outer aspect of the right ankle was also numb to touch. She again did not have any pain or swelling or skin changes. She is keisha to walk without difficulty. She did not have any fevers or chills. She has RA, on Cimzia that was held last week because of a head cold. She does not feel this is a RA flare, as she is usually in sever pain when that occurs. She denies any calf swelling or pain, denies low back pain. 15:37 The patient has not experienced similar symptoms in the past. The patient has been pc recently seen by their primary care provider, for a routine, regularly scheduled appointment. Historical: - Allergies: no known allergies; - Home Meds: 1. levothyroxine 112 mcg Oral cap 1 cap once daily 2. Cimzia subcutaneous subcutaneous every other week 3. prednisone 5 mg Oral tab once daily 4. Arthritis Pain Reliever 650 mg oral TbER 2 tabs 5. cyclobenzaprine 10 mg Oral tab as needed 6. metformin 500 mg Oral TG24 2 tabs 2 times per day 7. Vitamin D Oral 50,000 unit bi weekly 8. fenofibrate 54 mg oral tab 1 tab once daily 9. omeprazole 20 mg Oral cpDR 1 cap once daily 10. citalopram 40 mg Oral tab 1 tab once daily 11. mirtazapine 15 mg Oral TbDL 1 tab once daily 12. acyclovir 800 mg Oral tab as needed 13. Ventolin Rotahaler/Rotacaps Inhl as needed 14. clobetasol 0.05 % Topical crea as needed 15. Systane 0.4-0.3 % ophthalmic drop three times a day 16. Restasis 0.05 % ophthalmic dpet 1 drop 2 times per day - PMHx: Psoriasis; Asthma; Hiatal Hernia; Depression; Diabetes - NIDDM: controlled; Rheumatoid Arthritis; Hypothyroidism; - PSHx: Cholecystectomy; Lumpectomy- Left; Hysterectomy; - The history from nurses notes was reviewed: and I agree with what is documented. - Social history: Smoking status: Patient states was never smoker of tobacco. No barriers to communication noted, The patient speaks fluent Ukrainian, Speaks appropriately for age. - Family history: Not pertinent. - : The pt / caregiver states he / she is not on anticoagulants. Home medication list is obtained from the patient. - Hospitalizations: : No recent hospitalization is reported. - Exposure Risk Screening:: None identified. - Immunization history:: All immunizations up-to-date. - Social history:: the patient is a non-smoker, the patient does not drink alcohol. ROS: 15:37 CVS/Resp: runny nose and dry cough for 5 days. pc 15:37 All systems are negative except as listed. Exam: 15:37 General Appearance: no acute distress, alert. pc 15:37 EENT: normal eye inspection, ears, nose and throat normal, pharynx normal, mucous membranes moist 15:37 Neck: The exam reveals no acute abnormalities. ROM is normal and painless. No nuchal rigidity is noted.. 15:37 Respiratory: no respiratory distress, normal breath sounds. 15:37 CVS: regular pulse rate, regular rhythm, normal S1 and S2, no murmurs, strong peripheral pulses, normal capillary refill. 15:37 Abdomen: soft, non-tender, no organomegaly, normal bowel sounds. 15:37 Back: normal inspection. 15:37 Skin: skin color is normal, warm, dry. 15:37 Extremities: grossly normal except: noted in the right ankle and lateral aspect of right foot: slight swelling noted, warm to touch without skin color changes. ROM of ankle normal and painless. No bony point tenderness. Decreased light touch but normal pin prick sensation. 15:37 Extremities: the calves have equal circumference, supple. pc Vital Signs: 14:00 BP 148 / 72; Pulse 83; Resp 18 S; Temp 96.8(O); Pulse Ox 98% on R/A; Weight 90.72 kg / gr2 200 lbs (R); Height 4 ft. 11 in. (149.86 cm) (R); Pain 0/10; 17:48 BP 139 / 72; Pulse 80; Resp 20; Temp 97.6(O); Pulse Ox 96% on R/A; Pain 0/10; jc4 14:00 Body Mass Index 40.39 (90.72 kg, 149.86 cm) gr2 MDM: 15:20 IV Saline Lock ordered. pc 15:21 CBC with Diff Ordered. EDMS 15:21 C Reactive Protein Ordered. EDMS 15:21 ESR Ordered. EDMS 15:22 Ankle, Complete Ordered. EDMS 15:40 Differential Diagnosis: arthropathy right ankle with history of RA, with localized pc sensory changesd likely due to swelling r/o DVT/radiculopathy. Plan: labs, imaging. 15:51 Financial registration complete. [email or web address] 15:55 [facility] Payment Agreement was scanned into Enswers and attached to record. [email or web address] 16:35 C Reactive Protein Reviewed. pc 16:35 CBC with Diff Reviewed. pc 16:35 ESR Reviewed. pc 16:35 Ankle, Complete Reviewed. pc 16:37 DVT US Lower Ordered. EDMS 17:40 Data reviewed: old medical records, vital signs, nurses notes, lab test results, all pc radiology studies and available results. Test interpretation: LAB - all labs as ordered have been reviewed, interpreted and considered in the overall management of the clinical presentation; Ultrasound - interpreted by Radiologist, Extremity Lower Right Normal. The patient has been re-examined and re-evaluated. There is no appreciated change of the patient's symptoms at this time. ED course: Her symptoms are consistent with localized paraesthesia due to swelling. The ankle is warm and slightly swollen and her CRP is slightly elevated. She will be treated symptomatically and encouraged to contact her Kerrick Kleaner Operator tomorrow reDerik Bennett. 17:49 Disposition: The historical points, examination findings, and any diagnostic results pc supporting the provided diagnosis, were discussed with the patient or legal guardian. The need for outpatient follow up with the provider listed on their discharge instructions was discussed. They were encouraged to return to [facility], or the nearest ED, if symptoms worsen/persist, or for any other questions/concerns. 18:05 Apply Air Cast to Patient. ordered. pc 12/05 10:48 Radiology Report was scanned into Enswers and attached to record. gb Signatures: Dispatcher [employer] Mobile EDMS Emmett Chen MD MD pc Carito Cornell, Reg Reg gb Addie Mathews,RN RN kr3 Geovanna Urbano RN RN ld5 Hedy Sheffield RN RN jc4 Miriam Fields, Reg Reg [email or web address] The chart was reviewed and I authenticate all verbal orders and agree with the evaluation and treatment provided.Corrections: (The following items were deleted from the chart) 12/04 15:32 15:[address] 3-4 hours on Monday and noticed that her right foot, over the lateral pc aspect near the base of the 5th M/T was numb to touch. It was not painful or swollen, and the skin was not red. She kept it elevated over night and then noticed the next morning that the outer aspect of the right ankle was also numb to touch. She again did not have any pain or swelling or skin changes. She is keisha to walk without difficulty. She did not have any fevers or chills pc 15:38 15:27 [address] drove 3-4 hours on Monday and noticed that her right foot, over the lateral pc aspect near the base of the 5th M/T was numb to touch. It was not painful or swollen, and the skin was not red. She kept it elevated over night and then noticed the next morning that the outer aspect of the right ankle was also numb to touch. She again did not have any pain or swelling or skin changes. She is keisha to walk without difficulty. She did not have any fevers or chills. She has RA, on Cimzia that was held last week because of a head cold. Attachments: 15:55 [facility] Payment Agreement [email or web address] Chart Complete MTDD
== END 2016-12-04 18:24 | disposition home or self-care (01) ==
LOC: M ED 13:57
DX: M06.2 Rheumatoid bursitis (principal); R20.2 Paresthesia of skin; L40.9 Psoriasis, unspecified; J45.909 Unspecified asthma, uncomplicated; K44.9 Diaphragmatic hernia without obstruction or gangrene; F32.9 Major depressive disorder, single episode, unspecified; E11.9 Type 2 diabetes mellitus without complications; M05.40 Rheumatoid myopathy with rheumatoid arthritis of unspecified site; E03.9 Hypothyroidism, unspecified; Z79.52 Long term (current) use of systemic steroids; Z79.899 Other long term (current) drug therapy; Z79.51 Long term (current) use of inhaled steroids

== ENCOUNTER 2019-08-27 09:02 | Day surgery (SDC) | payer OTHER ==
[~2019-08-27] VITALS: Ht 149.9 cm; Wt 91.4 kg
[~2019-08-27 09:02] MED LIST: ACET1TAB37 PO; ACYC1CAP20 PO; CELE40TA PO; CYCL10TA PO; FURO20TA2 PO; LEVO112T2 PO; METF-839 PO; NEUR600T PO; NS 1,000 ML IV ONE; OMEP40CA97 PO; PRED5PAK PO; PROL60SO SC; REME15TA2 PO; TRAM50TA2 PO; TRUL10IN SC; VENTAER INH; VITA50005 PO; XELJ11TA PO
[2019-08-27] MEDS ORDERED: LIDOCAINE 2% INJ 100 MG/5 ML SDV (FOR ANES.) As Ordered ONE ×2 (10:59→11:18)
[2019-08-27] MEDS ORDERED: propofoL 200 MG/20 ML VIAL As Ordered ONE ×2 (10:59→11:18)
--- NOTE | 2019-08-27 11:43 | ROOR ---
Patient Name: Kristi Hansen Procedure Date: 08/27/2019 11:07 AM Date of : 1960 Age: 58 Room: [facility] Gender: Female Note Status: Finalized Procedure: Upper Endoscopy + Biopsies Indications: Dysphagia, Heartburn Providers: Melo Tolliver MD Referring MD: LINDA PAYNE MD Requesting Provider: Medicines: Monitored Anesthesia Care Complications: No immediate complications. Procedure: Pre-Anesthesia Assessment: - The heart rate, respiratory rate, oxygen saturations, blood pressure, adequacy of pulmonary ventilation, and response to care were monitored throughout the procedure. The upper GI endoscopy was accomplished without difficulty. The patient tolerated the procedure well. The Endoscope was introduced through the mouth, and advanced to the second part of duodenum. Findings: A web was found at the cricopharyngeus. Dilated with scope passage. The Z-line was irregular and was found 40 cm from the incisors. Multiple biopsies were obtained with cold forceps for evaluation to rule out Daigle's Esophagus randomly at the gastroesophageal junction. A small hiatal hernia was present. No other significant abnormalities were identified in a careful examination of the stomach. The exam of the duodenum was otherwise normal. 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 - Z-line irregular, 40 cm from the incisors. - Small hiatal hernia. - Multiple biopsies were obtained at the gastroesophageal junction. - The examination was otherwise normal. Recommendation: - Patient has a contact number available for emergencies. The signs and symptoms of potential delayed complications were discussed with the patient. Return to normal activities tomorrow. Written discharge instructions were provided to the patient. - Resume previous diet. - Discharge patient to home. - Follow an antireflux regimen. - Continue present medications. - Await pathology results. - Telephone GI clinic for pathology results in 1 week. - Return to referring physician. - The findings and recommendations were discussed with the patient's family. Melo Tolliver MD Melo Tolliver MD 08/27/2019 11:43:08 AM Electronically signed by Melo Tolliver MD Number of Addenda: 0 Note Initiated On: 08/27/2019 11:07 AM Estimated Blood Loss: Estimated blood loss: none.
--- NOTE | 2019-08-27 11:50 | ROOR ---
Patient Name: Kristi Hansen Procedure Date: 08/27/2019 11:07 AM Date of : 1960 Age: 58 Room: [facility] Gender: Female Note Status: Finalized Procedure: Total Colonoscopy to Cecum + Cold Snare Polypectomy Indications: Screening for colorectal malignant neoplasm Providers: Melo Tolliver MD Referring MD: LINDA PAYNE MD Requesting Provider: Medicines: Monitored Anesthesia Care Complications: No immediate complications. Procedure: Pre-Anesthesia Assessment: - The heart rate, respiratory rate, oxygen saturations, blood pressure, adequacy of pulmonary ventilation, and response to care were monitored throughout the procedure. The patient tolerated the procedure well. The Colonoscope was introduced through the anus and advanced to the cecum, identified by appendiceal orifice and ileocecal valve. The quality of the bowel preparation was good. Findings: The perianal and digital rectal examinations were normal. Non-bleeding internal hemorrhoids were found during retroflexion. The hemorrhoids were Grade I (internal hemorrhoids that do not prolapse). Scattered small-mouthed diverticula were found in the recto-sigmoid colon, sigmoid colon and descending colon. A small polyp was found in the hepatic flexure. The polyp was sessile. The polyp was removed with a cold snare. Resection and retrieval were complete. The exam was otherwise without abnormality on direct and retroflexion views. Impression: - Non-bleeding internal hemorrhoids. - Diverticulosis in the recto-sigmoid colon, in the sigmoid colon and in the descending colon. - One small polyp at the hepatic flexure, removed with a cold snare. Resected and retrieved. - The examination was otherwise normal on direct and retroflexion views. - The exam was otherwise normal to the cecum. Recommendation: - Patient has a contact number available for emergencies. The signs and symptoms of potential delayed complications were discussed with the patient. Return to normal activities tomorrow. Written discharge instructions were provided to the patient. - High fiber diet. - Discharge patient to home. - Continue present medications. - Await pathology results. - Telephone GI clinic for pathology results in 1 week. - Return to referring physician. - Repeat colonoscopy in 5 years for surveillance based on pathology results. - The findings and recommendations were discussed with the patient's family. Melo Tolliver MD Melo Tolliver MD 08/27/2019 11:49:57 AM Electronically signed by Melo Tolliver MD Number of Addenda: 0 Note Initiated On: 08/27/2019 11:07 AM Estimated Blood Loss: Estimated blood loss: none.
[2019-08-27 12:16] VITALS: BP 164/81
== END 2019-08-27 12:18 | disposition home or self-care (01) ==
LOC: M OPP 09:02
PROVIDERS: ATTEND Internal Medicine Gastroenterology
DX: Z12.11 Encounter for screening for malignant neoplasm of colon (principal); K64.0 First degree hemorrhoids; K57.30 Diverticulosis of large intestine without perforation or abscess without bleeding; D12.3 Benign neoplasm of transverse colon; R13.10 Dysphagia, unspecified; R12 Heartburn; Q39.4 Esophageal web; K22.8 Other specified diseases of esophagus; K44.9 Diaphragmatic hernia without obstruction or gangrene; E78.5 Hyperlipidemia, unspecified; E11.9 Type 2 diabetes mellitus without complications; E03.9 Hypothyroidism, unspecified; Z86.19 Personal history of other infectious and parasitic diseases; M85.80 Other specified disorders of bone density and structure, unspecified site; M19.90 Unspecified osteoarthritis, unspecified site; M54.5 Low back pain; F32.9 Major depressive disorder, single episode, unspecified; G62.9 Polyneuropathy, unspecified; J45.909 Unspecified asthma, uncomplicated; R06.83 Snoring; Z79.899 Other long term (current) drug therapy

== ENCOUNTER 2023-11-08 11:48 | Day surgery (SDC) | payer MEDICARE, OTHER ==
[~2023-11-08] VITALS: Ht 149.9 cm; Wt 87.5 kg
[~2023-11-08 11:48] MED LIST changes: +ATOR1TAB19 PO; +AZAT50TA37 PO; +CYCL-707 PO; -CYCL10TA PO; +ERGO500029 PO; +FOLI1TAB11 PO; +LEVOTAB10 PO; +LIDOCAINE 2% 100MG/5ML SDV (FOR ANES.) As Ordered ONE; +MIRT-84 PO; +OMEP40CA4 PO; -OMEP40CA97 PO; +POTA-165 PO; +PRED1TABL PO; -REME15TA2 PO; +SYST1SOL OU; +propofoL 200 MG/20 ML VIAL As Ordered ONE
[2023-11-08] MEDS ORDERED: ONDANSETRON 4MG 2ML VIAL IV ONE (12:20)
[2023-11-08] MEDS ORDERED: ONDANSETRON 4MG 2ML VIAL As Ordered ONE (12:25)
[2023-11-08] MEDS ORDERED: fentaNYL 100 MCG/2 ML INJECTION As Ordered ONE (12:33)
[2023-11-08 13:57] VITALS: BP 111/63; O2SAT 99
== END 2023-11-08 13:56 | disposition home or self-care (01) ==
LOC: M OPP 11:48
PROVIDERS: ATTEND Internal Medicine Gastroenterology
DX: Z86.010 Personal history of colon polyps (principal); D12.6 Benign neoplasm of colon, unspecified; K64.0 First degree hemorrhoids; K57.30 Diverticulosis of large intestine without perforation or abscess without bleeding; D50.9 Iron deficiency anemia, unspecified; K31.89 Other diseases of stomach and duodenum; K44.9 Diaphragmatic hernia without obstruction or gangrene; E11.9 Type 2 diabetes mellitus without complications; Z79.02 Long term (current) use of antithrombotics/antiplatelets; Z79.1 Long term (current) use of non-steroidal anti-inflammatories (NSAID); Z79.52 Long term (current) use of systemic steroids; Z79.83 Long term (current) use of bisphosphonates; Z79.890 Hormone replacement therapy; Z79.891 Long term (current) use of opiate analgesic; Z79.899 Other long term (current) drug therapy; Z88.8 Allergy status to other drugs, medicaments and biological substances
CPT/HCPCS: 43239; 45380; 88305; J2405; J3010